=== PATIENT | female | born 1940 | race Caucasian/White ===

== ENCOUNTER → 2016-10-25 | Outpatient (CLI) | payer MEDICARE, BC ==
--- NOTE | 2016-10-26 01:07 | BD ---
EXAMINATION TYPE: MG DEXA axial skeleton. DATE OF EXAM: 10/25/2016 3:06 PM COMPARISON: NONE CLINICAL HISTORY: 76-year-old female postmenopausal screening Height: 66 IN Weight: 154 LBS FRAX RISK QUESTIONS: Alcohol (3 or more units per day): NO Family History (Parent hip fracture): YES MOTHER Glucocorticoids (More than 3mos): NO (Ex: prednisone, prednisolone, methylprednisolone, dexamethasone, and hydrocortisone). History of Fracture in Adulthood: NO Secondary Osteoporosis: 1. Type 1 Diabetes: NO 2. Hyperthyroidism: NO 3. Menopause before 45: YES AGE 40 4. Malnutrition: NO 5. Chronic liver disease: NO Rheumatoid Arthritis: NO Current Tobacco Use: NO RISK FACTORS HISTORY OF: Surgery to Spine): L SPINE When: 1995 Family History of Osteoporosis: YES MOTHER/AUNT(M) Active: YES Diet low in dairy products/other sources of calcium: YES Postmenopausal woman: AGE 40 Take estrogen and/or progesterone medications: NOT NOW How long: AGE 41 - 46 Lost more than 2 inches in height since high school: YES 3 " MEDICATIONS: Thyroid Medications: YES Which medication: Levothyroxine How Lon+ YRS Additional Medications: CALCIUM, VIT D, LEVOTHYROXINE, ABILIFY, PAXIL, XANAX, PROPRANOLOL, BABY ASPIR IN, CENTRUM SILVER EXAM MEASUREMENTS: Bone mineral densitometry was performed using the [employer] System. PT HAD L-SPINE SURGERY IN 1995 Bone mineral density about the R hip (g/cm2): 0.842 Bone mineral density about the L hip (g/cm2): 0.794 T Score values are as follows: -----R Neck: -1.4 -----L Neck: -1.8 -----R Total: -1.1 -----L Total: -1.4 Bone mineral density BASELINE IMPRESSION: Osteopenia as indicated by T score values in both hips. There is slightly increased risk of fracture and the patient may be considered for treatment. Re-Screen 2-5 years. NOTE: T-SCORE=SD OF THE YOUNG ADULT MEAN.
--- NOTE | 2016-10-28 07:45 | MM ---
Reason for exam: screening (asymptomatic). Last mammogram was performed 1 year ago. History: Patient is postmenopausal, has history of high-risk lesion on a previous biopsy at age 59, history of other cancer, and had first child at age 32. High risk excisional biopsy of the left breast. Benign excisional biopsy of the right breast. Physical Findings: A clinical breast exam by your physician is recommended on an annual basis and results should be correlated with mammographic findings. MG 3D Screening Mammo W/Cad Bilateral CC and MLO view(s) were taken. Prior study comparison: October 15, 2015, bilateral MG 3d diag mammo w/cad KASIE. September 13, 2014, mammogram. The breast tissue is extremely dense which could obscure a lesion on mammography. Subtle distortion right medial inferior MLO view, may be present previously. ASSESSMENT: Probably benign, BI-RAD 3 RECOMMENDATION: Follow-up diagnostic mammogram of the right breast in 6 months.
== END | disposition home or self-care (01) ==
LOC: RADMAMWWP 15:03
PROVIDERS: ATTEND Internal Medicine
DX: Z12.31 Encounter for screening mammogram for malignant neoplasm of breast (principal); M85.80 Other specified disorders of bone density and structure, unspecified site; Z78.0 Asymptomatic menopausal state
CPT/HCPCS: 77080; 77063; G0202

== ENCOUNTER → 2016-10-27 | Outpatient (CLI) | payer MEDICARE, BC ==
[2016-10-27 08:16] LABS: CH 30.3; CHCM 32.4; HCT 40.8 % (34.0-46.0); HDW 2.24; MCHC 31.9 g/dL (31.0-37.0); MCV 94.2 fL (80.0-100.0); Mean Platelet Volume 7.9; RBC 4.33 m/uL (3.80-5.40); RDW 14.2 % (11.5-15.5); WBC 5.3 k/uL (3.8-10.6)
[2016-10-27 08:23] LABS: ALT 36 U/L (9-52); AST 41 U/L (14-36); Alkaline Phosphatase 75 U/L (38-126); Anion Gap 9 mmol/L; Blood Urea Nitrogen 11 mg/dL (7-17); Calcium 8.8 mg/dL (8.4-10.2); Carbon Dioxide 28 mmol/L (22-30); Chloride 101 mmol/L (98-107); Cholesterol 135 mg/dL (<200); Glucose 81 mg/dL (74-99); HDL Cholesterol 51 mg/dL (40-60); Non-African American GFR(MDRD) >60 (>60 ml/min/1.73 sqM); Sodium 138 mmol/L (137-145); Total Bilirubin 0.7 mg/dL (0.2-1.3); Total Protein 6.8 g/dL (6.3-8.2); Triglycerides 54 mg/dL (<150)
[2016-10-27 12:35] LABS: Hemoglobin A1C 5.4 % (4.2-6.1)
== END | disposition home or self-care (01) ==
LOC: LABWHC1 06:38
PROVIDERS: ATTEND Internal Medicine
DX: E03.9 Hypothyroidism, unspecified (principal); E78.5 Hyperlipidemia, unspecified; F06.4 Anxiety disorder due to known physiological condition; R25.1 Tremor, unspecified; Z13.1 Encounter for screening for diabetes mellitus
CPT/HCPCS: 36415; 80053; 80061; 83036; 84443; 85027

== ENCOUNTER → 2017-04-29 | Outpatient (CLI) | payer MEDICARE, BC ==
--- NOTE | 2017-05-02 07:55 | MM ---
Reason for exam: follow-up at short interval from prior study. Last mammogram was performed 6 months ago. History: Patient is postmenopausal, has history of high-risk lesion on a previous biopsy at age 59, history of other cancer, and had first child at age 32. High risk excisional biopsy of the left breast. Benign excisional biopsy of the right breast. Physical Findings: Nurse did not find any significant physical abnormalities on exam. MG 3D Diag Mammo W/Cad RT CC and MLO view(s) were taken of the right breast. Prior study comparison: October 25, 2016, bilateral MG 3d screening mammo w/cad. October 15, 2015, bilateral MG 3d diag mammo w/cad KASIE. The breast tissue is extremely dense which could obscure a lesion on mammography. Finding #1: Stable architectural distortion in the right breast consistent with previous surgery. Finding #2: There are typically benign calcifications in the right breast. These results were verbally communicated with the patient and result sheet given to the patient on 04/29/17. ASSESSMENT: Benign, BI-RAD 2 RECOMMENDATION: Follow-up diagnostic mammogram of both breasts in 6 months.
== END | disposition home or self-care (01) ==
LOC: RADMAMWWP 14:28
PROVIDERS: ATTEND Internal Medicine
DX: R92.8 Other abnormal and inconclusive findings on diagnostic imaging of breast (principal)
CPT/HCPCS: G0206; G0279

== ENCOUNTER 2017-10-07 12:07 | Emergency (ER) | payer MEDICARE, BC ==
[2017-10-07] MEDS ORDERED: RX INFO: IV CONTRAST WAS GIVEN 1 EACH MISC MISCELLANE PRN (12:15)
[2017-10-07] MEDS ORDERED: SODIUM CHLORIDE 0.9% 1,000 ML IV STA (12:15)
[2017-10-07 12:38] LABS: Basophils % (A) 0 %; Eosinophils # (A) 0.2 k/uL (0-0.7); Eosinophils % (A) 2 %; HGB 14.7 gm/dL (11.4-16.0); Lymphocytes # (A) 1.7 k/uL (1.0-4.8); Lymphocytes % (A) 17 %; MCH 29.4 pg (25.0-35.0); MCHC 32.6 g/dL (31.0-37.0); MCV 90.1 fL (80.0-100.0); Mean Platelet Volume 7.9; Monocytes # (A) 0.5 k/uL (0-1.0); Monocytes % (A) 4 %; Neutrophils # (A) 7.5 k/uL (1.3-7.7); Neutrophils % (A) 75 %; Platelet Count 275 k/uL (150-450); RBC 4.99 m/uL (3.80-5.40); RDW 14.3 % (11.5-15.5); WBC 10.1 k/uL (3.8-10.6)
--- NOTE | 2017-10-07 12:48 | ED ---
General Adult HPI - General Chief complaint: Neuro Symptoms/Deficit Stated complaint: Memory Loss Time Seen by Provider: 10/07/17 12:14 Source: family, RN notes reviewed, old records reviewed Mode of arrival: wheelchair Limitations: altered mental status - History of Present Illness Initial comments: This is a 77-year-old female the ER for evaluation per patient does say for evaluation regarding episode of memory loss. Patient has history of colon amnesia unrelated known cause. Patient has no high blood pressure cholesterol no diabetes of her breath. Patient does admit to being mildly anxious currently. Per family patient was left babysitting, when they returned home patient was having difficulty with memory unsure of where she was how she got there etc. Patient currently having difficulty with current memory situation. Unable to remember any events of today. In that fact patient's poor strain, denies headache denies any other complaints. Patient does have resting right upper extremity tremor - Related Data Home Medications Medication Instructions Recorded Confirmed ARIPiprazole [Abilify] 2 mg PO DAILY 10/07/17 10/07/17 ARIPiprazole [Abilify] 15 mg PO DAILY 10/07/17 10/07/17 Aspirin EC [Ecotrin Low Dose] 81 mg PO DAILY 10/07/17 10/07/17 Cholecalciferol [Vitamin D3] 1,000 unit PO DAILY 10/07/17 10/07/17 Levothyroxine Sodium [Synthroid] 25 mcg PO DAILY 10/07/17 10/07/17 PARoxetine HCL [Paxil Cr] 25 mg PO HS 10/07/17 10/07/17 Propranolol HCl [Propranolol HCl 60 mg PO DAILY 10/07/17 10/07/17 ER] Allergies Allergy/AdvReac Type Severity Reaction Status Date / Time No Known Allergies Allergy Verified 10/07/17 12:45 Review of Systems ROS Statement: Those systems with pertinent positive or pertinent negative responses have been documented in the HPI. ROS Other: All systems not noted in ROS Statement are negative. Past Medical History Additional Past Medical History / Comment(s): global amnesia in the past History of Any Multi-Drug Resistant Organisms: None Reported Past Surgical History: Appendectomy, Hysterectomy Additional Past Surgical History / Comment(s): cysts removed from breasts Past Psychological History: Depression Smoking Status: Never smoker Past Alcohol Use History: None Reported Past Drug Use History: None Reported General Exam - General Exam Comments Initial Comments: NIH of 0, no focal neurological deficit, patient does have retrograde memory loss Limitations: altered mental status General appearance: alert, in no apparent distress Head exam: Present: atraumatic, normocephalic, normal inspection Eye exam: Present: normal appearance, PERRL, EOMI. Absent: scleral icterus, conjunctival injection, periorbital swelling ENT exam: Present: normal exam, mucous membranes moist Neck exam: Present: normal inspection. Absent: tenderness, meningismus, lymphadenopathy Respiratory exam: Present: normal lung sounds bilaterally. Absent: respiratory distress, wheezes, rales, rhonchi, stridor Cardiovascular Exam: Present: regular rate, normal rhythm, normal heart sounds. Absent: systolic murmur, diastolic murmur, rubs, gallop, clicks GI/Abdominal exam: Present: soft, normal bowel sounds. Absent: distended, tenderness, guarding, rebound, rigid Extremities exam: Present: normal inspection, full ROM, normal capillary refill. Absent: tenderness, pedal edema, joint swelling, calf tenderness Back exam: Present: normal inspection Neurological exam: Present: alert, oriented X3, CN II-XII intact Psychiatric exam: Present: normal affect, normal mood Skin exam: Present: warm, dry, intact, normal color. Absent: rash Course Vital Signs 10/07/17 10/07/17 12:18 13:38 Temperature 98.6 F Pulse Rate 73 71 Respiratory 18 20 Rate Blood Pressure 184/89 180/87 O2 Sat by Pulse 99 99 Oximetry - Reevaluation(s) Reevaluation #1: 10/07/17 12:47 Code stroke page, Reevaluation #2: 10/07/17 14:09 Patient improving, still having mild memory lapse from earlier today EKG Findings - EKG Comments: EKG Findings:: EKG shows normal sinus rhythm rate of 70, IN 166, QRS 86, QTc 403 Medical Decision Making - Medical Decision Making 77 female the ER for evaluation, fall retrograde memory loss, transient global amnesia, CT CT negative labwork normal. Patient will be discharged home - Lab Data Result diagrams: 10/07/17 12:25 10/07/17 12:25 Lab Results 10/07/17 10/07/17 10/07/17 Range/Units 12:25 12:25 12:25 WBC 10.1 (3.8-10.6) k/uL RBC 4.99 (3.80-5.40) m/uL Hgb 14.7 (11.4-16.0) gm/dL Hct 45.0 (34.0-46.0) % MCV 90.1 (80.0-100.0) fL MCH 29.4 (25.0-35.0) pg MCHC 32.6 (31.0-37.0) g/dL RDW 14.3 (11.5-15.5) % Plt Count 275 (150-450) k/uL Neutrophils % 75 % Lymphocytes % 17 % Monocytes % 4 % Eosinophils % 2 % Basophils % 0 % Neutrophils # 7.5 (1.3-7.7) k/uL Lymphocytes # 1.7 (1.0-4.8) k/uL Monocytes # 0.5 (0-1.0) k/uL Eosinophils # 0.2 (0-0.7) k/uL Basophils # 0.0 (0-0.2) k/uL PT (9.0-12.0) sec INR (<1.2) APTT (22.0-30.0) sec Sodium 143 (137-145) mmol/L Potassium 4.2 (3.5-5.1) mmol/L Chloride 103 (98-107) mmol/L Carbon Dioxide 27 (22-30) mmol/L Anion Gap 13 mmol/L BUN 20 H (7-17) mg/dL Creatinine 0.73 (0.52-1.04) mg/dL Est GFR (CKD-EPI)AfAm >90 (>60 ml/min/1.73 sqM) Est GFR (CKD-EPI)NonAf 81 (>60 ml/min/1.73 sqM) Glucose 101 H (74-99) mg/dL Calcium 9.4 (8.4-10.2) mg/dL Total Bilirubin 0.4 (0.2-1.3) mg/dL AST 35 (14-36) U/L ALT 31 (9-52) U/L Alkaline Phosphatase 106 (38-126) U/L Total Creatine Kinase 269 H (30-135) U/L CK-MB (CK-2) 3.7 H* (0.0-2.4) ng/mL CK-MB (CK-2) Rel Index 1.4 Troponin I 0.038 H* (0.000-0.034) ng/mL Total Protein 7.1 (6.3-8.2) g/dL Albumin 4.2 (3.5-5.0) g/dL 10/07/17 Range/Units 12:25 WBC (3.8-10.6) k/uL RBC (3.80-5.40) m/uL Hgb (11.4-16.0) gm/dL Hct (34.0-46.0) % MCV (80.0-100.0) fL MCH (25.0-35.0) pg MCHC (31.0-37.0) g/dL RDW (11.5-15.5) % Plt Count (150-450) k/uL Neutrophils % % Lymphocytes % % Monocytes % % Eosinophils % % Basophils % % Neutrophils # (1.3-7.7) k/uL Lymphocytes # (1.0-4.8) k/uL Monocytes # (0-1.0) k/uL Eosinophils # (0-0.7) k/uL Basophils # (0-0.2) k/uL PT 10.4 (9.0-12.0) sec INR 1.1 (<1.2) APTT 23.9 (22.0-30.0) sec Sodium (137-145) mmol/L Potassium (3.5-5.1) mmol/L Chloride (98-107) mmol/L Carbon Dioxide (22-30) mmol/L Anion Gap mmol/L BUN (7-17) mg/dL Creatinine (0.52-1.04) mg/dL Est GFR (CKD-EPI)AfAm (>60 ml/min/1.73 sqM) Est GFR (CKD-EPI)NonAf (>60 ml/min/1.73 sqM) Glucose (74-99) mg/dL Calcium (8.4-10.2) mg/dL Total Bilirubin (0.2-1.3) mg/dL AST (14-36) U/L ALT (9-52) U/L Alkaline Phosphatase (38-126) U/L Total Creatine Kinase (30-135) U/L CK-MB (CK-2) (0.0-2.4) ng/mL CK-MB (CK-2) Rel Index Troponin I (0.000-0.034) ng/mL Total Protein (6.3-8.2) g/dL Albumin (3.5-5.0) g/dL - Radiology Data Radiology results: report reviewed (CT brain CTA head and neck negative), image reviewed Disposition Clinical Impression: Transient global amnesia Disposition: HOME SELF-CARE Condition: Good Instructions: Transient Global Amnesia (ED) Is patient prescribed a controlled substance at d/c from ED?: No Referrals: Sreedhar Encinas MD [Primary Care Provider] - 1-2 days
[2017-10-07 12:50] LABS: ALT 31 U/L (9-52); AST 35 U/L (14-36); Albumin 4.2 g/dL (3.5-5.0); Alkaline Phosphatase 106 U/L (38-126); Anion Gap 13 mmol/L; Blood Urea Nitrogen 20 mg/dL (7-17); Calcium 9.4 mg/dL (8.4-10.2); Carbon Dioxide 27 mmol/L (22-30); Chloride 103 mmol/L (98-107); Glucose 101 mg/dL (74-99); Potassium 4.2 mmol/L (3.5-5.1); Sodium 143 mmol/L (137-145); Total Bilirubin 0.4 mg/dL (0.2-1.3); Total Protein 7.1 g/dL (6.3-8.2)
--- NOTE | 2017-10-07 12:55 | CT ---
EXAMINATION TYPE: CT brain wo con for TPA DATE OF EXAM: 10/07/2017 COMPARISON: NONE HISTORY: confusion CT DLP: 1029.[address] of the brain was performed. The ventricles, basal cisterns and sulci overlying the cerebral convexities demonstrate mild enlargem ent. There is no evidence for intracranial hemorrhage or sulcal effacement. There is decreased attenuation about the periventricular white matter and deep white matter of both c erebral hemispheres, compatible with chronic small vessel ischemia. Differential diagnosis does inclu de demyelination. No mass effects are seen.No midline shift. Osseous calvarium is intact. If symptoms persist consider MRI. IMPRESSION: 1. Age related atrophic and chronic small vessel ischemic change without acute intracranial process s een at this time.
[2017-10-07 13:17] LABS: INR 1.1 (<1.2); Partial Thromboplastin Time 23.9 sec (22.0-30.0); Prothrombin Time 10.4 sec (9.0-12.0)
[2017-10-07 13:23] LABS: Creatine Kinase MB 3.7 ng/mL (0.0-2.4); Troponin I 0.038 ng/mL (0.000-0.034)
--- NOTE | 2017-10-07 13:51 | CT ---
EXAMINATION TYPE: CT angio head neck DATE OF EXAM: 10/07/2017 COMPARISON: NONE HISTORY: ams, confusion, weakness CT DLP: 319.3 mGycm CONTRAST: Performed with IV Contrast, patient injected with 65 mL of Isovue 370. Combination Contrast CTA cervical carotids and [place] CTA cervical carotids with 3-D recons truction Contrast CTA of the cervical carotids was performed 3-D reconstruction imaging obtained at a separate workstation. Right carotid system: Mild plaque is seen of the right common carotid artery. There is mild plaque a lso noted at the carotid bulb and proximal ICA. No significant diameter reduction. ECA is patent. Right vertebral artery appears unremarkable. Left carotid system: Mild plaque is seen of the left common carotid artery. There is mild plaque als o noted at the carotid bulb and proximal ICA. No significant diameter reduction. ECA is patent. Lef t vertebral artery appears unremarkable. IMPRESSION: 1. No significant diameter reduction to account for the patient's symptoms. CTA [place] with 3-D reconstruction Contrast CTA of the [place] was performed 3-D reconstruction imaging obtained at a separate workstation. Vertebrobasilar system as well as intracranial portions of the internal carotid arteries and their ma [place]orah tributaries are patent. I do not see evidence for sizable aneurysm or vascular malformation. Pl ease note MRI provides greater sensitivity and specificity. Visualized brain appears grossly unremar kable. IMPRESSION: 1. No significant abnormality.
[2017-10-07 14:38] VITALS: BP 159/64; PULSE 89; RESP 18; TEMP 98
== END 2017-10-07 14:38 | disposition home or self-care (01) ==
LOC: EC 12:07
DX: G45.4 Transient global amnesia (principal); R41.82 Altered mental status, unspecified; F32.9 Major depressive disorder, single episode, unspecified; Z79.82 Long term (current) use of aspirin; Z79.899 Other long term (current) drug therapy
CPT/HCPCS: 99285 ×2; 96360 ×2; 96361 ×2; 36415; 93005; 80053; 82550; 82553; 84484; 85025; 85610; 85730; 70496; 70450; 70498; Q9967

== ENCOUNTER → 2017-10-17 | Outpatient (CLI) | payer MEDICARE, BC ==
--- NOTE | 2017-10-18 07:11 | MM ---
Reason for exam: additional evaluation requested from prior study. Last mammogram was performed 6 months ago. History: Patient is postmenopausal, has history of high-risk lesion on a previous biopsy at age 59, history of other cancer, and had first child at age 32. High risk excisional biopsy of the left breast. Benign excisional biopsy of the right breast. Physical Findings: Nurse did not find any significant physical abnormalities on exam. MG 3D Diag Mammo W/Cad KASIE Bilateral CC and MLO view(s) were taken. Prior study comparison: April 29, 2017, right breast MG 3d diag mammo w/cad RT. October 25, 2016, bilateral MG 3d screening mammo w/cad. The breast tissue is extremely dense which could obscure a lesion on mammography. Finding #1: There is stable architectural distortion in the outer quadrant of the right breast. Finding #2: There are typically benign vascular, round calcifications in both breasts. There is no discrete abnormality. These results were verbally communicated with the patient and result sheet given to the patient on 10/17/17. ASSESSMENT: Benign, BI-RAD 2 RECOMMENDATION: Routine screening mammogram of both breasts in 1 year.
== END | disposition home or self-care (01) ==
LOC: RADMAMWWP 14:53
PROVIDERS: ATTEND Internal Medicine
DX: R92.8 Other abnormal and inconclusive findings on diagnostic imaging of breast (principal)
CPT/HCPCS: 77066; G0279; 77062

== ENCOUNTER → 2017-10-19 | Outpatient (CLI) | payer MEDICARE, BC ==
--- NOTE | 2017-10-19 18:22 | EEG ---
ELECTROENCEPHALOGRAM REPORT DATE OF SERVICE: 10/19/2017. REASON FOR TESTING: Altered mental status. DESCRIPTION OF THE PROCEDURE: This EEG was performed using a 21 channel digital electroencephalograph, following international 10-20 system. DESCRIPTION OF THE RECORDING: From the beginning of the tracing, with patient's eyes closed, the background rhythm was mostly consisting of 9-10 Hz alpha frequency in the posterior occipital leads. No obvious asymmetry is seen. Photic stimulation was performed with a minimal driving response seen. No pathological waves were elicited. Hyperventilation was not performed. The patient remains awake throughout the tracing. No epileptiform discharges were seen. Her EKG lead showed a regular rate and rhythm. INTERPRETATION: This awake EEG can be considered within normal limits. There was no asymmetry seen. No epileptiform discharges were noticed. The absence of epileptiform discharges does not rule out the diagnosis of epilepsy, therefore clinical correlation is recommended. RECOMMENDATION: Thank you, Dr. Encinas for allowing me to participate in the care of your patient. If you have any questions, please feel free to contact me. MMELVIA / IJN: [id number] /
== END ==
LOC: NEUROMAIN 12:38
PROVIDERS: ATTEND Internal Medicine
DX: G45.4 Transient global amnesia (principal)
CPT/HCPCS: 95819

== ENCOUNTER 2017-11-04 15:54 | Emergency (ER) | payer OTHER, MEDICARE, BC ==
[2017-11-04 16:11] VITALS: PULSE 78; RESP 18; TEMP 98.1
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
[2017-11-04] MEDS ORDERED: TOPICAL SKIN ADHESIVE 1 EACH AMP TOPICAL ONE (17:22)
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
[2017-11-04 18:00] VITALS: BP 168/78
== END 2017-11-04 18:00 | disposition home or self-care (01) ==
LOC: EC 15:54
DX: S01.112A Laceration without foreign body of left eyelid and periocular area, initial encounter (principal); S09.90XA Unspecified injury of head, initial encounter; G31.9 Degenerative disease of nervous system, unspecified; R40.2412 Glasgow coma scale score 13-15, at arrival to emergency department; I10 Essential (primary) hypertension; E07.9 Disorder of thyroid, unspecified; F32.9 Major depressive disorder, single episode, unspecified; Z79.82 Long term (current) use of aspirin; Z79.899 Other long term (current) drug therapy; V89.2XXA Person injured in unspecified motor-vehicle accident, traffic, initial encounter; Y92.410 Unspecified street and highway as the place of occurrence of the external cause
CPT/HCPCS: 12011; 70450; 70486; 72125; 99284

== ENCOUNTER → 2017-12-29 | Outpatient (CLI) | payer MEDICARE, BC ==
--- NOTE | 2017-12-29 17:39 | XR ---
EXAMINATION TYPE: XR wrist complete LT DATE OF EXAM: 12/29/2017 COMPARISON: NONE HISTORY: Fall. Wrist pain. TECHNIQUE: 4 views. FINDINGS: I see no fracture nor dislocation. There is calcification of the triangular cartilage. Ther e are no erosions. IMPRESSION: No fracture. Chondrocalcinosis.
--- NOTE | 2017-12-29 17:40 | XR ---
EXAMINATION TYPE: XR forearm LT DATE OF EXAM: 12/29/2017 COMPARISON: NONE HISTORY: Pain TECHNIQUE: 2 views FINDINGS: I see no fracture nor dislocation. Radius and ulna appear intact. IMPRESSION: Negative left forearm exam.
--- NOTE | 2017-12-29 17:44 | XR ---
EXAMINATION TYPE: XR humerus LT DATE OF EXAM: 12/29/2017 COMPARISON: NONE HISTORY: Arm pain TECHNIQUE: 2 views FINDINGS: There is no sign of fracture nor dislocation. Shoulder joint and elbow joint appear intact. IMPRESSION: Negative left humerus exam
== END | disposition home or self-care (01) ==
LOC: RADXRMAIN 17:01
PROVIDERS: ATTEND Nurse Practitioner Adult Health
DX: M11.232 Other chondrocalcinosis, left wrist (principal); M79.602 Pain in left arm

== ENCOUNTER → 2018-06-30 | Outpatient (CLI) | payer OTHER ==
--- NOTE | 2018-06-30 16:50 | XR ---
EXAMINATION TYPE: XR tibia fibula LT DATE OF EXAM: 06/30/2018 CLINICAL HISTORY: Fracture TECHNIQUE: Two views of the left leg are obtained. COMPARISON: None at this location FINDINGS: There is a healing fracture with callus formation at the distal diaphyseal left fibula. Joint spaces appear preserved. Joint prosthesis is noted at the knee. Soft tissues are unremarkable. IMPRESSION: 1. Healing fracture distal diaphyseal fibula.
== END | disposition home or self-care (01) ==
LOC: RADXRMAIN 14:53
PROVIDERS: ATTEND Internal Medicine
DX: S82.402D Unspecified fracture of shaft of left fibula, subsequent encounter for closed fracture with routine healing (principal)

== ENCOUNTER → 2018-07-17 | Outpatient (CLI) | payer OTHER ==
--- NOTE | 2018-07-17 18:51 | US ---
EXAMINATION TYPE: US venous doppler duplex LE LT DATE OF EXAM: 07/17/2018 6:21 PM COMPARISON: NONE CLINICAL HISTORY: M25.572 lle pain and swelling. Left leg pain. SIDE PERFORMED: Left TECHNIQUE: The lower extremity deep venous system is examined utilizing real time linear array sonog reji with graded compression, doppler sonography and color-flow sonography. VESSELS IMAGED: External Iliac Vein (EIV) Common Femoral Vein Deep Femoral Vein Greater Saphenous Vein * Femoral Vein Popliteal Vein Small Saphenous Vein * Proximal Calf Veins (* superficial vessels) Left Leg: Negative for DVT Grayscale, color doppler, spectral doppler imaging performed of the deep veins of the left lower extr emity. There is normal flow, compressibility, vascular waveforms. IMPRESSION: No ultrasound evidence for acute DVT in the left lower extremity.
== END | disposition home or self-care (01) ==
LOC: RADUSMAIN 17:58
PROVIDERS: ATTEND Orthopaedic Surgery
DX: M25.572 Pain in left ankle and joints of left foot (principal); R60.9 Edema, unspecified

== ENCOUNTER → 2018-08-01 | Outpatient (CLI) | payer MEDICARE, OTHER ==
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
== END | disposition home or self-care (01) ==
LOC: RADFLMAIN 11:07
PROVIDERS: ATTEND Otolaryngology
DX: J39.2 Other diseases of pharynx (principal)
CPT/HCPCS: 74230

== ENCOUNTER → 2018-09-25 | Outpatient (CLI) | payer MEDICARE ==
--- NOTE | 2018-09-25 16:22 | US ---
EXAMINATION TYPE: US venous doppler duplex LE LT DATE OF EXAM: 09/25/2018 4:11 PM COMPARISON: Left lower extremity venous ultrasound July 17, 2018 CLINICAL HISTORY: M25.572/R60.9/S82.62XD/Evaluate DVT. SIDE PERFORMED: Left TECHNIQUE: The lower extremity deep venous system is examined utilizing real time linear array sonog reji with graded compression, doppler sonography and color-flow sonography. VESSELS IMAGED: External Iliac Vein (EIV) Common Femoral Vein Deep Femoral Vein Greater Saphenous Vein * Femoral Vein Popliteal Vein Small Saphenous Vein * Proximal Calf Veins (* superficial vessels) Left Leg: Appears negative for DVT. Preliminary given to Xena at 4:15. Grayscale, color doppler, spectral doppler imaging performed of the deep veins of the left lower extr emity. There is normal flow, compressibility, vascular waveforms. IMPRESSION: No ultrasound evidence for acute DVT in the left lower extremity. No significant change from prior.
== END | disposition home or self-care (01) ==
LOC: RADUSWWP 15:41
PROVIDERS: ATTEND Orthopaedic Surgery
DX: M79.662 Pain in left lower leg (principal); R60.9 Edema, unspecified; I80.3 Phlebitis and thrombophlebitis of lower extremities, unspecified; S82.62XD Displaced fracture of lateral malleolus of left fibula, subsequent encounter for closed fracture with routine healing

== ENCOUNTER → 2018-12-11 | Outpatient (CLI) | payer MEDICARE, BC ==
--- NOTE | 2018-12-13 08:07 | MM ---
Reason for exam: screening (asymptomatic). Last mammogram was performed 1 year and 2 months ago. History: Patient is postmenopausal, has history of high-risk lesion on a previous biopsy at age 59, history of other cancer, and had first child at age 32. High risk excisional biopsy of the left breast. Benign excisional biopsy of the right breast. Physical Findings: A clinical breast exam by your physician is recommended on an annual basis and results should be correlated with mammographic findings. MG 3D Screening Mammo W/Cad Bilateral CC and MLO view(s) were taken. Prior study comparison: October 17, 2017, bilateral MG 3d diag mammo w/cad KASIE. April 29, 2017, right breast MG 3d diag mammo w/cad RT. The breast tissue is heterogeneously dense. This may lower the sensitivity of mammography. No significant changes when compared with prior studies. ASSESSMENT: Negative, BI-RAD 1 RECOMMENDATION: Routine screening mammogram of both breasts in 1 year. Patient should continue monthly self breast exams. A negative report should not preclude additional follow up of suspicious palpable abnormalities.
== END | disposition home or self-care (01) ==
LOC: RADMAMWWP 14:32
PROVIDERS: ATTEND Internal Medicine
DX: Z12.31 Encounter for screening mammogram for malignant neoplasm of breast (principal)
CPT/HCPCS: 77063; 77067

== ENCOUNTER → 2019-01-01 | Outpatient (CLI) | payer MEDICARE, BC ==
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
== END | disposition home or self-care (01) ==
LOC: RADBDWWP 08:59
PROVIDERS: ATTEND Internal Medicine
DX: M85.88 Other specified disorders of bone density and structure, other site (principal); Z78.0 Asymptomatic menopausal state
CPT/HCPCS: 77080

== ENCOUNTER → 2020-01-28 | Outpatient (CLI) | payer MEDICARE, BC ==
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
== END | disposition home or self-care (01) ==
LOC: RADMAMWWP 14:17
PROVIDERS: ATTEND Internal Medicine
DX: Z12.31 Encounter for screening mammogram for malignant neoplasm of breast (principal)
CPT/HCPCS: 77063; 77067

== ENCOUNTER → 2020-02-21 | Outpatient (CLI) | payer MEDICARE, BC ==
--- NOTE | 2020-02-21 15:32 | CT ---
EXAMINATION TYPE: CT brain wo con DATE OF EXAM: 02/21/2020 HISTORY: Confusion x 3 weeks. History of TBI. CT DLP: 1150.5 mGycm. Automated Exposure Control for Dose Reduction was Utilized. TECHNIQUE: CT scan of the head is performed without contrast. COMPARISON: CT brain November 04, 2017. FINDINGS: There is no acute intracranial hemorrhage or midline shift identified. There is diffuse v entricular and sulcal prominence consistent with diffuse age-related cerebral atrophy. There is low- attenuation in the periventricular white matter consistent with chronic small vessel ischemic change. The globes are intact and the visualized sinuses are clear. IMPRESSION: No acute intracranial hemorrhage or midline shift. There is ovhu-ka-dileetom diffuse ag e-related cerebral atrophy and moderate to advanced chronic small vessel ischemic change redemonstrat ed. No significant change from prior CT.
== END | disposition home or self-care (01) ==
LOC: RADCTMAIN 09:46
PROVIDERS: ATTEND Internal Medicine
DX: I67.82 Cerebral ischemia (principal); G31.1 Senile degeneration of brain, not elsewhere classified; R41.0 Disorientation, unspecified; Z20.828 Contact with and (suspected) exposure to other viral communicable diseases
CPT/HCPCS: 70450; U0003; C9803

== ENCOUNTER → 2020-04-15 | Outpatient (CLI) | payer MEDICARE, BC ==
[~2020-04-15] MED LIST: DOBUTamine DRIP for NUC MED 500 MG in DEXTROSE/WATER 1 250ML.BAG IV ONE
--- NOTE | 2020-04-15 12:15 | ECHOS ---
STRESS ECHOCARDIOGRAM BASELINE HEART RATE: 70 BASELINE BLOOD PRESSURE: 133/74 MAXIMUM HEART RATE: 134 MAXIMUM BLOOD PRESSURE: 152/55 85% MPHR: 121 100% MPHR: 142 MAXIMUM STAGE REACHED: 3 TOTAL EXERCISE TIME: 7:54 CLINICAL INFORMATION: Baseline EKG revealed normal sinus rhythm without significant ST changes. With dobutamine administration as per protocol, the heart rate went up to 134 beats per minute which is well above 85% of predicted maximal. She did not have any significant symptoms. EKG did not reveal any ST-segment changes to indicate ischemia. Upsloping nonspecific ST-segment changes with rare PVCs were noted. By EKG criteria, this is unremarkable dobutamine stress test with a heart rate of more than 85% of the predicted maximal. This is unremarkable dobutamine stress test by EKG criteria. Baseline echo images revealed normal wall motion wall thickening of all segments. With dobutamine administration, there was progressive increase in contractility of all segments suggesting that there is no evidence of stress-induced ischemia on this study. FINAL IMPRESSION: 1. By EKG criteria, this is an unremarkable dobutamine stress test without any evidence of ischemia or angina. 2. Normal dobutamine stress echocardiogram. There is no evidence to suggest stress induced ischemia on this study. MMODL / IJN: [id number] /
== END | disposition home or self-care (01) ==
LOC: RADNMMAIN 09:42
PROVIDERS: ATTEND Internal Medicine
DX: R07.9 Chest pain, unspecified (principal)
CPT/HCPCS: 93351; J1250

== ENCOUNTER → 2020-04-21 | Outpatient (CLI) | payer OTHER, MEDICARE, BC ==
--- NOTE | 2020-04-21 13:51 | MR ---
MRI CERVICAL SPINE: CLINICAL HISTORY: Hyperreflexia, abnormal gait, and myelopathy all per order. Neck pain for 2 years. TECHNIQUE: Multiplanar, multisequence imaging of the cervical spine is performed without IV contrast. COMPARISON: CT cervical spine September 04, 2017. FINDINGS: Sagittal images of the cervical spine show the craniocervical junction to appear within nor mal limits. Slight grade 1 anterolisthesis C4 on C5 along with C7 on T1 is redemonstrated. Exaggerate d cervical curvature redemonstrated. Persistent moderate disc space narrowing C5-C6 and C6-C7 levels. Mild to moderate anterior spurring at these levels. Vertebral body heights maintained. The bone mar row signal intensity is within normal limits. Axial images show the C2-C3 level to appear within normal limits. Axial images at C3-C4 level show uncovertebral facet degenerative changes bilaterally causing mild-to -moderate right greater than left bilateral neural foraminal narrowing. Axial images at C4-C5 level shows spondylolisthesis without vertebral facet degenerative changes bila terally, patent bilateral neural foramina. Axial images at C5-C6 level broad-based right paracentral disc protrusion effacing anterior thecal sa c. Up to the ventral surface of spinal cord, patent bilateral neural foramina. Axial images at C6-C7 level broad-based central disc protrusion effacing the anterior thecal sac up t o the ventral surface of spinal cord axial image 15, patent bilateral neural foramina. Axial images at C7-T1 level show spondylolisthesis, spinal canal is preserved. The bilateral neural f oramina. IMPRESSION: Exaggerated cervical curvature with multilevel spondylolisthesis and degenerative changes as detailed above
== END | disposition home or self-care (01) ==
LOC: RADMRIMAIN 12:43
PROVIDERS: ATTEND Psychiatry & Neurology Neurology
DX: M43.12 Spondylolisthesis, cervical region (principal); M43.13 Spondylolisthesis, cervicothoracic region; M47.12 Other spondylosis with myelopathy, cervical region; M43.8X2 Other specified deforming dorsopathies, cervical region
CPT/HCPCS: 72141

== ENCOUNTER 2020-06-07 12:48 | Emergency (ER) | payer MEDICARE, BC, OTHER ==
[2020-06-07 12:55] VITALS: TEMP 98.7
[2020-06-07] MEDS ORDERED: hydrALAZINE HCL 20 MG/ML 1 ML VIAL IVP STA (13:47)
[2020-06-07 14:01] LABS: Basophils # (A) 0.1 k/uL (0-0.2); Basophils % (A) 1 %; Eosinophils # (A) 0.3 k/uL (0-0.7); Eosinophils % (A) 4 %; HCT 42.7 % (34.0-46.0); HGB 14.3 gm/dL (11.4-16.0); Lymphocytes # (A) 1.4 k/uL (1.0-4.8); Lymphocytes % (A) 23 %; MCHC 33.5 g/dL (31.0-37.0); MCV 92.4 fL (80.0-100.0); Mean Platelet Volume 7.2; Monocytes # (A) 0.5 k/uL (0-1.0); Monocytes % (A) 8 %; Neutrophils # (A) 3.8 k/uL (1.3-7.7); Neutrophils % (A) 62 %; Platelet Count 264 k/uL (150-450); RBC 4.62 m/uL (3.80-5.40); WBC 6.2 k/uL (3.8-10.6)
--- NOTE | 2020-06-07 14:08 | XR ---
EXAMINATION TYPE: XR chest 2V DATE OF EXAM: 06/07/2020 COMPARISON: 04/27/2016 HISTORY: Chest pain TECHNIQUE: FINDINGS: Heart is normal. Lungs are clear of consolidation. There are no hilar masses. Costophrenic angles are clear. The bony thorax is intact. IMPRESSION: No active cardiopulmonary disease. No change.
[2020-06-07 14:12] LABS: INR 0.9 (<1.2); Partial Thromboplastin Time 23.7 sec (22.0-30.0); Prothrombin Time 9.5 sec (9.0-12.0)
[2020-06-07 14:18] LABS: ALT 28 U/L (4-34); AST 34 U/L (14-36); African American GFR (CKD) >90 (>60 ml/min/1.73 sqM); Albumin 3.9 g/dL (3.5-5.0); Alkaline Phosphatase 95 U/L (38-126); Anion Gap 5 mmol/L; Blood Urea Nitrogen 13 mg/dL (7-17); Carbon Dioxide 31 mmol/L (22-30); Chloride 104 mmol/L (98-107); Glucose 90 mg/dL (74-99); Magnesium 2.2 mg/dL (1.6-2.3); Non-African American GFR(CKD) 85 (>60 ml/min/1.73 sqM); Potassium 3.8 mmol/L (3.5-5.1); Sodium 140 mmol/L (137-145); Total Bilirubin 0.4 mg/dL (0.2-1.3); Total Protein 6.7 g/dL (6.3-8.2)
--- NOTE | 2020-06-07 15:33 | ED ---
General Adult HPI - General Chief complaint: Recheck/Abnormal Lab/Rx Stated complaint: High BP Time Seen by Provider: 06/07/20 12:55 Source: patient, family, RN notes reviewed, old records reviewed Mode of arrival: wheelchair Limitations: no limitations - History of Present Illness Initial comments: This is a 71-year-old female presents emergency department stating that her blood pressure was elevated she came to the emergency room. Patient states she had no headache she denies any blurred vision. Patient denies any chest pain palpitations difficulty breathing shortness of breath. Patient states she called her primary medical care doctor he did recommend her to come to the emergency department. Patient states she is asymptomatic but her blood pressure systolic was over 200 and diastolic was over 100 at home. Patient denies any recent fever chills or cough. - Related Data Home Medications Medication Instructions Recorded Confirmed Aspirin EC [Ecotrin Low Dose] 81 mg PO DAILY@1200 10/07/17 06/07/20 Levothyroxine Sodium [Synthroid] 25 mcg PO AC-BRKFST 10/07/17 06/07/20 PARoxetine HCL [Paxil Cr] 25 mg PO HS 10/07/17 06/07/20 Multivit-Min/Iron/Folic/Lutein 1 tab PO DAILY@1600 11/04/17 06/07/20 [Centrum Silver Women Tablet] ALPRAZolam [Xanax] 0.0625 - 0.125 mg PO BID PRN 06/07/20 06/07/20 ARIPiprazole [Abilify] 15 mg PO HS 06/07/20 06/07/20 Acetaminophen Tab [Tylenol Tab] 500 mg PO Q6H PRN 06/07/20 06/07/20 Carbidopa-Levodopa 25-100 mg 1 tab PO TID@0500,1000,1500 06/07/20 06/07/20 [Sinemet 25-100] Divalproex ER [Depakote ER] 250 mg PO HS 06/07/20 06/07/20 Meloxicam [Mobic] 15 mg PO DAILY 06/07/20 06/07/20 Supai-3/Dha/Epa/Fish Oil [Fish Oil 1 cap PO BID@1200,1600 06/07/20 06/07/20 500 mg Softgel] Psyllium Silver Capsule 5 cap PO AC-BID 06/07/20 06/07/20 Sennosides-Docusate Sodium 1 tab PO DAILY 06/07/20 06/07/20 [Senokot-S] amLODIPine [Norvasc] 5 mg PO DAILY 06/07/20 06/07/20 lamoTRIgine [LaMICtal] 300 mg PO HS 06/07/20 06/07/20 Allergies Allergy/AdvReac Type Severity Reaction Status Date / Time acetaminophen [From Percocet] Allergy Unknown Verified 06/07/20 15:20 oxycodone [From Percocet] Allergy Unknown Verified 06/07/20 15:20 Penicillins Allergy Rash/Hives Verified 06/07/20 15:20 propoxyphene [From Darvon] Allergy Unknown Verified 06/07/20 15:20 shellfish derived [Shellfish] Allergy Anaphylaxis Verified 06/07/20 15:20 Review of Systems ROS Statement: Those systems with pertinent positive or pertinent negative responses have been documented in the HPI. ROS Other: All systems not noted in ROS Statement are negative. 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 Patient is nontoxic and well- hydrated and is in mild distress. ENT: Neck is soft and supple. No significant lymphadenopathy is noted. Oropharynx is clear. Moist mucous membranes. Neck has full range of motion without eliciting any pain. EYES: The sclera were anicteric and conjunctiva were pink and moist. Extraocular movements were intact and pupils were equal round and reactive to light. Eyelids were unremarkable. PULMONARY: Unlabored respirations. Good breath sounds bilaterally. No audible rales rhonchi or wheezing was noted. CARDIOVASCULAR: There is a regular rate and rhythm without any murmurs gallops or rubs. ABDOMEN: Soft and nontender with normal bowel sounds. SKIN: Skin is clear with no lesions or rashes and otherwise unremarkable. NEUROLOGIC: Patient is alert and oriented x3. Cranial nerves II through XII are grossly intact. Motor and sensory are also intact. Normal speech, volume and content. Symmetrical smile. MUSCULOSKELETAL: Normal extremities with adequate strength and full range of motion. LYMPHATICS: No significant lymphadenopathy is noted PSYCHIATRIC: Normal psychiatric evaluation. Limitations: no limitations Course Vital Signs 06/07/20 06/07/20 06/07/20 12:52 13:41 15:33 Temperature 98.7 F Pulse Rate 104 H 88 Respiratory 20 18 Rate Blood Pressure 186/93 155/83 156/77 O2 Sat by Pulse 97 98 Oximetry Medical Decision Making - Medical Decision Making ekg shows normal sinus rhythm at a rate of 89bpm. [place] interval is 180. QRS is 86. QT is 368. QTc is 447. Patient received hydralazine 10 mg IV push. Her sugar came down to 155/78 and she remained asymptomatic. - Lab Data Result diagrams: 06/07/20 13:38 06/07/20 13:38 Lab Results 06/07/20 06/07/20 06/07/20 Range/Units 13:38 13:38 13:38 WBC 6.2 (3.8-10.6) k/uL RBC 4.62 (3.80-5.40) m/uL Hgb 14.3 (11.4-16.0) gm/dL Hct 42.7 (34.0-46.0) % MCV 92.4 (80.0-100.0) fL MCH 31.0 (25.0-35.0) pg MCHC 33.5 (31.0-37.0) g/dL RDW 14.0 (11.5-15.5) % Plt Count 264 (150-450) k/uL MPV 7.2 Neutrophils % 62 % Lymphocytes % 23 % Monocytes % 8 % Eosinophils % 4 % Basophils % 1 % Neutrophils # 3.8 (1.3-7.7) k/uL Lymphocytes # 1.4 (1.0-4.8) k/uL Monocytes # 0.5 (0-1.0) k/uL Eosinophils # 0.3 (0-0.7) k/uL Basophils # 0.1 (0-0.2) k/uL PT 9.5 (9.0-12.0) sec INR 0.9 (<1.2) APTT 23.7 (22.0-30.0) sec Sodium 140 (137-145) mmol/L Potassium 3.8 (3.5-5.1) mmol/L Chloride 104 (98-107) mmol/L Carbon Dioxide 31 H (22-30) mmol/L Anion Gap 5 mmol/L BUN 13 (7-17) mg/dL Creatinine 0.66 (0.52-1.04) mg/dL Est GFR (CKD-EPI)AfAm >90 (>60 ml/min/1.73 sqM) Est GFR (CKD-EPI)NonAf 85 (>60 ml/min/1.73 sqM) Glucose 90 (74-99) mg/dL Calcium 9.0 (8.4-10.2) mg/dL Magnesium 2.2 (1.6-2.3) mg/dL Total Bilirubin 0.4 (0.2-1.3) mg/dL AST 34 (14-36) U/L ALT 28 (4-34) U/L Alkaline Phosphatase 95 (38-126) U/L Troponin I (0.000-0.034) ng/mL Total Protein 6.7 (6.3-8.2) g/dL Albumin 3.9 (3.5-5.0) g/dL 06/07/20 Range/Units 13:38 WBC (3.8-10.6) k/uL RBC (3.80-5.40) m/uL Hgb (11.4-16.0) gm/dL Hct (34.0-46.0) % MCV (80.0-100.0) fL MCH (25.0-35.0) pg MCHC (31.0-37.0) g/dL RDW (11.5-15.5) % Plt Count (150-450) k/uL MPV Neutrophils % % Lymphocytes % % Monocytes % % Eosinophils % % Basophils % % Neutrophils # (1.3-7.7) k/uL Lymphocytes # (1.0-4.8) k/uL Monocytes # (0-1.0) k/uL Eosinophils # (0-0.7) k/uL Basophils # (0-0.2) k/uL PT (9.0-12.0) sec INR (<1.2) APTT (22.0-30.0) sec Sodium (137-145) mmol/L Potassium (3.5-5.1) mmol/L Chloride (98-107) mmol/L Carbon Dioxide (22-30) mmol/L Anion Gap mmol/L BUN (7-17) mg/dL Creatinine (0.52-1.04) mg/dL Est GFR (CKD-EPI)AfAm (>60 ml/min/1.73 sqM) Est GFR (CKD-EPI)NonAf (>60 ml/min/1.73 sqM) Glucose (74-99) mg/dL Calcium (8.4-10.2) mg/dL Magnesium (1.6-2.3) mg/dL Total Bilirubin (0.2-1.3) mg/dL AST (14-36) U/L ALT (4-34) U/L Alkaline Phosphatase (38-126) U/L Troponin I <0.012 (0.000-0.034) ng/mL Total Protein (6.3-8.2) g/dL Albumin (3.5-5.0) g/dL Disposition Clinical Impression: Hypertension Disposition: HOME SELF-CARE Condition: Good Instructions (If sedation given, give patient instructions): Hypertension (ED) Is patient prescribed a controlled substance at d/c from ED?: No Referrals: Ricardo Bennett MD [Primary Care Provider] - 1-2 days Time of Disposition: 15:32
[2020-06-07 15:34] VITALS: BP 156/77; PULSE 88; RESP 18
== END 2020-06-07 15:43 | disposition home or self-care (01) ==
LOC: EC 12:48
DX: I10 Essential (primary) hypertension (principal); F41.9 Anxiety disorder, unspecified; F31.9 Bipolar disorder, unspecified; F43.10 Post-traumatic stress disorder, unspecified; E07.9 Disorder of thyroid, unspecified; Z79.899 Other long term (current) drug therapy; Z79.890 Hormone replacement therapy; Z79.82 Long term (current) use of aspirin; Z88.5 Allergy status to narcotic agent; Z88.0 Allergy status to penicillin; Z88.8 Allergy status to other drugs, medicaments and biological substances; Z91.013 Allergy to seafood
CPT/HCPCS: 36415; 80053; 83735; 84484; 85025; 85610; 85730; 71046; 99284; 96374; J0360

== ENCOUNTER 2020-06-13 18:57 | Emergency (ER) | payer MEDICARE, OTHER ==
[2020-06-13 19:09] VITALS: TEMP 98.4
[2020-06-13 20:10] VITALS: BP 152/81; PULSE 94; RESP 16
--- NOTE | 2020-06-13 20:23 | ED ---
Recheck HPI - General Chief Complaint: Recheck/Abnormal Lab/Rx Stated Complaint: Hypertension Time Seen by Provider: 06/13/20 19:15 Source: patient Mode of arrival: wheelchair Limitations: no limitations - History of Present Illness Initial Comments: Patient is a 79-year-old female with history of hypertension, presenting to the emergency Department with complaints of elevated blood pressure today. Patient states she has been monitoring her blood pressure and takes it 4 times daily. She has been on Norvasc 5 mg in the morning but was recently switched to 10 mg in the evenings 3 days ago. Patient was seen in the ER 5 days ago and evaluated for the same thing. She's had normal labs and workup then. Patient states this evening when she took it was in the 190s over 102 so she got concerned and came into the ER. She denies having any symptoms at this time, no headaches, no blurry vision. She denies any other symptoms other then the elevated blood pressure. She doesn't history of anxiety. She has no other complaints at this time. Upon arrival to the ER, her blood pressure is 198/82, it was rechecked 20 minutes later and it was 170/86. The rest of her vitals are completely normal. - Related Data Home Medications Medication Instructions Recorded Confirmed Aspirin EC [Ecotrin Low Dose] 81 mg PO DAILY@1200 10/07/17 06/07/20 Levothyroxine Sodium [Synthroid] 25 mcg PO AC-BRKFST 10/07/17 06/07/20 PARoxetine HCL [Paxil Cr] 25 mg PO HS 10/07/17 06/07/20 Multivit-Min/Iron/Folic/Lutein 1 tab PO DAILY@1600 11/04/17 06/07/20 [Centrum Silver Women Tablet] ALPRAZolam [Xanax] 0.0625 - 0.125 mg PO BID PRN 06/07/20 06/07/20 ARIPiprazole [Abilify] 15 mg PO HS 06/07/20 06/07/20 Acetaminophen Tab [Tylenol Tab] 500 mg PO Q6H PRN 06/07/20 06/07/20 Carbidopa-Levodopa 25-100 mg 1 tab PO TID@0500,1000,1500 06/07/20 06/07/20 [Sinemet 25-100] Divalproex ER [Depakote ER] 250 mg PO HS 06/07/20 06/07/20 Meloxicam [Mobic] 15 mg PO DAILY 06/07/20 06/07/20 Reading-3/Dha/Epa/Fish Oil [Fish Oil 1 cap PO BID@1200,1600 06/07/20 06/07/20 500 mg Softgel] Psyllium Silver Capsule 5 cap PO AC-BID 06/07/20 06/07/20 Sennosides-Docusate Sodium 1 tab PO DAILY 06/07/20 06/07/20 [Senokot-S] lamoTRIgine [LaMICtal] 300 mg PO HS 06/07/20 06/07/20 amLODIPine [Norvasc] 10 mg PO HS 06/13/20 06/13/20 Allergies Allergy/AdvReac Type Severity Reaction Status Date / Time acetaminophen [From Percocet] Allergy Unknown Verified 06/13/20 20:26 oxycodone [From Percocet] Allergy Unknown Verified 06/13/20 20:26 Penicillins Allergy Rash/Hives Verified 06/13/20 20:26 propoxyphene [From Darvon] Allergy Unknown Verified 06/13/20 20:26 shellfish derived [Shellfish] Allergy Anaphylaxis Verified 06/13/20 20:26 Review of Systems ROS Statement: Those systems with pertinent positive or pertinent negative responses have been documented in the HPI. ROS Other: All systems not noted in ROS Statement are negative. 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 Patient is nontoxic and in no acute distress. HEAD: Atraumatic, normocephalic. EYES: Pupils equal round and reactive to light, extraocular movements intact, sclera anicteric, conjunctiva are normal. Eyelids were unremarkable. ENT: TMs normal, nares patent, oropharynx clear without exudates. Moist mucous membranes. NECK: Normal range of motion, supple without lymphadenopathy or JVD. LUNGS: Unlabored respirations. Breath sounds clear to auscultation bilaterally and equal. No wheezes rales or rhonchi. HEART: Regular rate and rhythm without murmurs, rubs or gallops. ABDOMEN: Soft, nontender, normoactive bowel sounds. No guarding, no rebound. No masses appreciated. : Deferred MUSCULOSKELETAL: Normal extremities with adequate strength and normal range of motion, no pitting or edema. No clubbing or cyanosis. NEUROLOGICAL: Patient is alert and oriented x 3. Motor and sensory are also intact. Cranial nerves II through XII grossly intact. Symmetrical smile. Normal speech, normal gait. PSYCH: Normal mood, normal affect. SKIN: Warm, Dry, normal turgor, no rashes or lesions noted. Limitations: no limitations Course Vital Signs 06/13/20 06/13/20 06/13/20 19:03 19:21 20:09 Temperature 98.4 F Pulse Rate 103 H 99 94 Respiratory 18 18 16 Rate Blood Pressure 198/82 178/86 152/81 O2 Sat by Pulse 97 99 97 Oximetry Medical Decision Making - Medical Decision Making Patient is 79-year-old female with history of hypertension presenting with complaints of elevated blood pressure at home just prior to arrival. Her blood pressure is 190/82 upon arrival, was rechecked 20 minutes later and it was 178/86. Patient is asymptomatic, her exam is unremarkable. She was recently switched to 10 mg of Norvasc in the evenings. She has not yet taken her evening dose. Patient's blood pressure was rechecked about a half an hour later it is 152/81. She has remained asymptomatic. I discussed with patient that she can go home and take her normal dose of medicine. She can follow up with her PCP. She is in agreement this plan of care. Return parameters were discussed with the patient and she verbalized understanding. Case discussed with Dr. Reyes. Disposition Clinical Impression: Hypertension Disposition: HOME SELF-CARE Condition: Stable Instructions (If sedation given, give patient instructions): Hypertension (ED) Additional Instructions: Please return to the Emergency Department if symptoms worsen or any other concerns. Continue with your already prescribed medications. Follow up with PCP. Is patient prescribed a controlled substance at d/c from ED?: No Referrals: Maskoni,Bashar, MD [Primary Care Provider] - 1-2 days
== END 2020-06-13 20:30 | disposition home or self-care (01) ==
LOC: EC 18:57
DX: I10 Essential (primary) hypertension (principal); E07.9 Disorder of thyroid, unspecified; F41.9 Anxiety disorder, unspecified; F31.9 Bipolar disorder, unspecified; F43.10 Post-traumatic stress disorder, unspecified; Z79.82 Long term (current) use of aspirin; Z79.890 Hormone replacement therapy; Z79.899 Other long term (current) drug therapy; Z88.8 Allergy status to other drugs, medicaments and biological substances; Z88.0 Allergy status to penicillin; Z91.013 Allergy to seafood; Z88.5 Allergy status to narcotic agent
CPT/HCPCS: 99283

== ENCOUNTER → 2020-09-19 | Outpatient (CLI) | payer MEDICARE | END | disposition home or self-care (01) | LOC: LABWHC1 13:19 | PROVIDERS: ATTEND Internal Medicine | DX: Z20.822 Contact with and (suspected) exposure to COVID-19 (principal) | CPT/HCPCS: U0003; C9803; U0005 ==

== ENCOUNTER → 2020-11-25 | Outpatient (CLI) | payer MEDICARE ==
--- NOTE | 2020-11-25 15:34 | XR ---
EXAMINATION TYPE: XR knee complete RT DATE OF EXAM: 11/25/2020 CLINICAL HISTORY: pain, no injury TECHNIQUE: Three views of the right knee are obtained. COMPARISON: None. FINDINGS: There is tricompartmental osteophytosis and subchondral sclerosis. There is medial and la teral chondrocalcinosis. Knee joint effusion is present. No acute fracture or dislocation is seen. IMPRESSION: Tricompartmental degenerative changes are seen with medial and lateral chondrocalcinosis and knee nicky nt effusion.
== END | disposition home or self-care (01) ==
LOC: RADXRMAIN 15:04
PROVIDERS: ATTEND Family Medicine
DX: M17.11 Unilateral primary osteoarthritis, right knee (principal); M11.261 Other chondrocalcinosis, right knee

== ENCOUNTER → 2021-04-24 | Outpatient (CLI) | payer MEDICARE ==
[2021-04-25 02:54] LABS: ALT 16 U/L (8-44); AST 25 U/L (13-35); Albumin 4.1 g/dL (3.8-4.9); Albumin/Globulin Ratio 1.58 (1.60-3.17); Alkaline Phosphatase 97 U/L (41-126); Bilirubin, Conjugated <0.20 mg/dL (0.20-0.40); Globulin 2.6 g/dL (1.6-3.3); Total Protein 6.7 g/dL (6.2-8.2)
== END | disposition home or self-care (01) ==
LOC: LABWHC1 08:05
DX: F31.81 Bipolar II disorder (principal)
CPT/HCPCS: 36415; 80076; 80164

== ENCOUNTER → 2021-05-11 | Outpatient (CLI) | payer MEDICARE ==
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
--- NOTE | 2021-05-12 12:05 | MM ---
Reason for exam: screening (asymptomatic). Last mammogram was performed 1 year and 3 months ago. History: Patient is postmenopausal, has history of high-risk lesion on a previous biopsy at age 59, history of other cancer, and had first child at age 32. High risk excisional biopsy of the left breast. Benign excisional biopsy of the right breast. Took hormonal contraceptives for 10 years. Took estrogen for 5 years. Took antineoplastic for 5 years. Physical Findings: A clinical breast exam by your physician is recommended on an annual basis and results should be correlated with mammographic findings. MG 3D Screening Mammo W/Cad Bilateral CC and MLO view(s) were taken. Prior study comparison: January 28, 2020, bilateral MG 3d screening mammo w/cad. December 11, 2018, bilateral MG 3d screening mammo w/cad. The breast tissue is extremely dense which could obscure a lesion on mammography. Finding #1: There is stable architectural distortion in the left breast consistent with known excisional changes. Finding #2: There are typically benign vascular, round calcifications in both breasts. There is no discrete abnormality. ASSESSMENT: Benign, BI-RAD 2 RECOMMENDATION: Routine screening mammogram of both breasts in 1 year.
== END | disposition home or self-care (01) ==
LOC: RADMAMWWP 07:43
PROVIDERS: ATTEND Internal Medicine
DX: Z12.31 Encounter for screening mammogram for malignant neoplasm of breast (principal); Z78.0 Asymptomatic menopausal state; R92.1 Mammographic calcification found on diagnostic imaging of breast; Z85.89 Personal history of malignant neoplasm of other organs and systems; M85.89 Other specified disorders of bone density and structure, multiple sites
CPT/HCPCS: 77063; 77067; 77080

== ENCOUNTER → 2021-06-24 | Outpatient (CLI) | payer MEDICARE ==
[2021-06-24 09:55] VITALS: BMI 29.9
== END ==
LOC: DBWHC3 08:23
PROVIDERS: ATTEND Internal Medicine
DX: R63.5 Abnormal weight gain (principal); F41.9 Anxiety disorder, unspecified; F31.9 Bipolar disorder, unspecified; K21.9 Gastro-esophageal reflux disease without esophagitis; E78.5 Hyperlipidemia, unspecified; I10 Essential (primary) hypertension; E03.9 Hypothyroidism, unspecified; M19.90 Unspecified osteoarthritis, unspecified site; F43.10 Post-traumatic stress disorder, unspecified; R25.1 Tremor, unspecified; Z88.0 Allergy status to penicillin; Z91.013 Allergy to seafood; Z79.890 Hormone replacement therapy; Z79.899 Other long term (current) drug therapy; Z88.5 Allergy status to narcotic agent; Z88.6 Allergy status to analgesic agent
CPT/HCPCS: 97802

== ENCOUNTER → 2021-07-01 | Outpatient (CLI) | payer MEDICARE | END | disposition home or self-care (01) | LOC: LABWHC1 10:35 | PROVIDERS: ATTEND Psychiatry & Neurology Psychiatry | DX: F31.81 Bipolar II disorder (principal) | CPT/HCPCS: 36415; 80164 ==

== ENCOUNTER → 2021-08-26 | Outpatient (CLI) | payer MEDICARE ==
--- NOTE | 2021-08-26 08:38 | US ---
EXAMINATION TYPE: US gallbladder DATE OF EXAM: 08/26/2021 COMPARISON: NONE CLINICAL HISTORY: R10.13 DYSEPSIA. Pt states acid reflux EXAM MEASUREMENTS: Liver Length: 14.3 cm Gallbladder Wall: 0.2 cm CBD: 0.3 cm Right Kidney: 10.3 x 4.2 x 4.4 cm Pancreas: Head wnl, body and tail obscured by overlying bowel gas Liver: Cyst right lobe= 1.9 x 2.0 x 2.2 cm, otherwise appeared wnl Gallbladder: A few possible small "gravel" stones Evidence for sonographic Burk's sign: No CBD: wnl Right Kidney: wnl, lower pole gassed out IMPRESSION: 1. Uncomplicated cholelithiasis. 2. Cyst right hepatic lobe as noted.
== END | disposition home or self-care (01) ==
LOC: RADUSWWP 07:08
PROVIDERS: ATTEND Internal Medicine
DX: K80.20 Calculus of gallbladder without cholecystitis without obstruction (principal); K76.89 Other specified diseases of liver
CPT/HCPCS: 76705

== ENCOUNTER → 2022-04-27 | Outpatient (CLI) | payer MEDICARE ==
--- NOTE | 2022-04-27 09:20 | MM ---
Reason for Exam: Clinical finding. Last screening mammogram was performed 12 month(s) ago. Indicated Problems: Pain of the left side (Global) for 3 Month(s) : LT AXILLA AND LATERAL BREAST PAIN FOR [address] OLIVA. Patient History: Menarche at age 13. First Full-Term at age 32. Late child-bearing (after 30). Hysterectomy at age 40. Postmenopausal. Patient has history of breast feeding. Patient used Estrogen for 5 years. Patient used Hormonal Contraceptives for 10 years. Benign Excisional Biopsy on the right side. High risk Excisional Biopsy on the left side. Risk Values: Zara 5 year model risk: 3.4%. NCI Lifetime model risk: 5.2%. Prior Study Comparison: 08/18/2012 Screening Mammogram, Unknown. 08/20/2013 Screening Mammogram, Unknown. 09/13/2014 Screening Mammogram, Unknown. 10/25/2016 Bilateral Screening Mammogram, [facility]. 10/17/2017 Bilateral Diagnostic Mammogram, [facility]. 12/11/2018 Bilateral Screening Mammogram, [facility]. 01/28/2020 Bilateral Screening Mammogram, [facility]. 05/11/2021 Bilateral Screening Mammogram, [facility]. Tissue Density: The breast tissue is heterogeneously dense. This may lower the sensitivity of mammography. Findings: Analyzed By CAD. No suspicious new mass or worrisome cluster microcalcifications within either breast. Benign-appearing round calcifications within the breast. No significant change from prior exams. Patient reports left axillary pain. No suspicious new mass or worrisome cluster microcalcifications within either breast. Benign-appearing round calcifications within the breast. No significant change from prior exams. Patient reports left axillary and lateral breast tenderness. Overall Assessment: Incomplete: need additional imaging evaluation, BI-RAD 0 Management: Diagnostic Breast Ultrasound of the left breast. A clinical breast exam by your physician is recommended on an annual basis and results should be correlated with mammographic findings. This exam should not preclude additional follow-up of suspicious palpable abnormalities. Results were given to the patient verbally at the time of exam. Electronically signed and approved by: Jerod Carreon D.O.
--- NOTE | 2022-04-27 09:25 | USB ---
Reason for Exam: Clinical finding. Patient History: Menarche at age 13. First Full-Term at age 32. Late child-bearing (after 30). Hysterectomy at age 40. Postmenopausal. Patient has history of breast feeding. Patient used Estrogen for 5 years. Patient used Hormonal Contraceptives for 10 years. Benign Excisional Biopsy on the right side. High risk Excisional Biopsy on the left side. Risk Values: Zara 5 year model risk: 3.4%. NCI Lifetime model risk: 5.2%. Technique: Method: Targeted. Prior Study Comparison: 12/11/2018 Bilateral Screening Mammogram, [facility]. 01/28/2020 Bilateral Screening Mammogram, [facility]. 05/11/2021 Bilateral Screening Mammogram, [facility]. Findings: The lateral section of the breast of the left breast and the axilla of the left breast were scanned. Ultrasound of the left breast from 1-5 o'clock with additional evaluation of the axilla was obtained. No solid or cystic lesions identified. Overall Assessment: Negative, BI-RAD 1 Management: Screening Mammogram of both breasts in 1 year. A clinical breast exam by your physician is recommended on an annual basis and results should be correlated with mammographic findings. This exam should not preclude additional follow-up of suspicious palpable abnormalities. Results were given to the patient verbally at the time of exam. Electronically signed and approved by: Jerod Carreon D.O.
== END | disposition home or self-care (01) ==
LOC: RADMAMWWP 07:50
PROVIDERS: ATTEND Internal Medicine
DX: N63.21 Unspecified lump in the left breast, upper outer quadrant (principal); Z78.0 Asymptomatic menopausal state; Z98.890 Other specified postprocedural states
CPT/HCPCS: 77066; 76642; G0279; 77062

== ENCOUNTER → 2023-01-10 | Outpatient (CLI) | payer MEDICARE ==
--- NOTE | 2023-01-10 14:33 | US ---
EXAMINATION TYPE: US carotid duplex BILAT DATE OF EXAM: 01/10/2023 COMPARISON: CLINICAL INDICATION: Female, 82 years old with history of I65.23 CAROTID STENOSIS; Dizziness. HTN co ntrolled with meds. TECHNIQUE: Carotid duplex ultrasound examination. Indirect Doppler criteria was utilized. FINDINGS: EXAM MEASUREMENTS: RIGHT: Peak Systolic Velocity (PSV) cm/sec ----- Right CCA: 86.7 ----- Right ICA: 101.6 ----- Right ECA: 112.9 ICA/CCA ratio: 1.2 RIGHT: End Diastole cm/sec ----- Right CCA: 15.3 ----- Right ICA: 20.8 ----- Right ECA: 12.8 LEFT: Peak Systolic Velocity (PSV) cm/sec ----- Left CCA: 82.3 ----- Left ICA: 88.6 ----- Left ECA: 82.7 ICA/CCA ratio: 1.1 LEFT: End Diastole cm/sec ----- Left CCA: 13.1 ----- Left ICA: 28.1 ----- Left ECA: 0.0 VERTEBRALS (direction of flow): Right Vertebral: Antegrade Left Vertebral: Antegrade Rhythm: Normal PUBLIC EMPLOYMENT MEDIATOR NOTES: No plaque or significant stenosis. Elevated proximal left proximal CCA velocity. IMPRESSION: Less than 50% stenosis of the bilateral carotid bifurcations. Criteria for Assigning % of Stenosis / Diameter reduction (Estimation based on the indirect measurements of the internal carotid artery velocities (ICA PSV). 1. Normal (no stenosis)=ICA PSV < 125 cm/s: ratio < 2.0: ICA EDV<40 cm/s. 2. Less than 50% stenosis=ICA PSV < 125 cm/s: ratio < 2.0: ICA EDV<40 cm/s. 3. 50 to 69% stenosis=ICA PSV of 125 to 230 cm/s: ration 2.0 ? 4.0: ICA EDV 40-100 cm/s. 4. Greater than 70% stenosis to near occlusion= ICA PSV > 230 cm/s: ratio > 4.0: ICA EDV > 100 cm/s. 5. Near occlusion= ICA PSV velocities may be low or undetectable: variable ratio and ICA EDV. 6. Total occlusion=unable to detect flow.
== END | disposition home or self-care (01) ==
LOC: RADUSWWP 13:41
PROVIDERS: ATTEND Internal Medicine
DX: I65.23 Occlusion and stenosis of bilateral carotid arteries (principal); I10 Essential (primary) hypertension
CPT/HCPCS: 93880

== ENCOUNTER → 2023-04-29 | Outpatient (CLI) | payer MEDICARE ==
--- NOTE | 2023-04-29 15:23 | BD ---
EXAMINATION TYPE: Axial Bone Density DATE OF EXAM: 04/29/2023 CLINICAL HISTORY: 82 years old Female. ICD-10 CODE: M85.851 DISORDER OF BONE Height: 64.5 Weight: 176 FRAX RISK QUESTIONS: Family History (Parent hip fracture): yes, mother History of Fracture in Adulthood: yes, L & T spine, ribs, lt ankle Secondary Osteoporosis: no Rheumatoid Arthritis: no RISK FACTORS HISTORY OF: Spine Fracture: yes When: 2017 Surgery to Spine: yes When: 1995 Family History of Osteoporosis: yes, mother Active: yes Diet low in dairy products/other sources of calcium: no Postmenopausal woman: yes Lost more than 2 inches in height since high school: yes was 70 Frequent falls: no Poor Health: no MEDICATIONS: Thyroid Medications: yes Which medication: Levothyroxine How Lon+ yrs.. Additional Medications: yes hbp meds, depression meds Additional History: yes calcium and vit d EXAM MEASUREMENTS: Bone mineral densitometry was performed using the [employer] System. Bone mineral density as measured about the Lumbar spine is: ----- L1-L4(G/cm2): 1.387 T Score Values are as follows: ----- L1: -0.4 ----- L2: 1.7 ----- L3: 2.1 ----- L4: 3.0 ----- L1-L4: 1.7 Z Score Values are as follows: ----- L1: 1.0 ----- L2: 3.1 ----- L3: 3.4 ----- L4: 4.3 ----- L1-L4: 3.1 Bone mineral density baseline Bone mineral density about the R hip (g/cm2): 0.829 Bone mineral density about the L hip (g/cm2): 0.851 T Score values are as follows: -----R Neck: -1.4 -----L Neck: -1.6 -----R Total: -1.4 -----L Total: -1.2 Z Score values are as follows: -----R Neck: 0.5 -----L Neck: 0.3 -----R Total: 0.3 -----L Total: 0.5 Bone mineral density has: Increased 1.4% since study of: 05/11/2021 FRAX%s: The graph provided illustrates a 32.6% chance for a major osteoporotic fx and a 18.7% chance for the hips probability for fx in 10 years time. IMPRESSION: Osteopenia (T Score between -2.5 and -1). There is slightly increased risk of fracture and the patient may be considered for treatment. Re-Screen 2-5 years. NOTE: T-SCORE=SD OF THE YOUNG ADULT MEAN.
--- NOTE | 2023-05-02 08:44 | MM ---
Reason for Exam: Screening (asymptomatic). Last screening mammogram was performed 12 month(s) ago. Patient History: Menarche at age 13. First Full-Term at age 32. Late child-bearing (after 30). Hysterectomy at age 40. Postmenopausal. Patient has history of breast feeding. Patient used Estrogen for 5 years. Patient used Hormonal Contraceptives for 10 years. Benign Excisional Biopsy on the right side. High risk Excisional Biopsy on the left side. Risk Values: Zara 5 year model risk: 3.3%. NCI Lifetime model risk: 4.8%. Prior Study Comparison: 01/28/2020 Bilateral Screening Mammogram, [facility]. 05/11/2021 Bilateral Screening Mammogram, [facility]. 04/27/2022 Bilateral MG 3D diag mammo w/cad [facility], [facility]. Tissue Density: The breast tissue is heterogeneously dense. This may lower the sensitivity of mammography. Findings: Analyzed By CAD. There is no suspicious group of microcalcifications or new suspicious mass in either breast. Overall Assessment: Benign, BI-RAD 2 Management: Screening Mammogram of both breasts in 1 year. . Patient should continue monthly self-breast exams. A clinical breast exam by your physician is recommended on an annual basis. This exam should not preclude additional follow-up of suspicious palpable abnormalities. Note on Zara scores and lifetime risk: 1. A Zara score greater than 3% is considered moderate risk. If this is the case, consider specialist referral to assess eligibility for a risk reducing agent. 2. If overall lifetime risk for the development of breast cancer is 20% or higher, the patient may qualify for future screening with alternating mammogram and breast MRI. Electronically signed and approved by: Dilan Doe M.D. Radiologis
== END | disposition home or self-care (01) ==
LOC: RADMAMWWP 08:17
PROVIDERS: ATTEND Internal Medicine
DX: Z12.31 Encounter for screening mammogram for malignant neoplasm of breast (principal); M85.89 Other specified disorders of bone density and structure, multiple sites; Z78.0 Asymptomatic menopausal state
CPT/HCPCS: 77063; 77067; 77080

== ENCOUNTER → 2023-05-27 | Outpatient (CLI) | payer MEDICARE ==
--- NOTE | 2023-05-27 17:57 | CA ---
Transthoracic Echo Report Name: Riya Ramires Age: 82 Gender: F : 1940 Exam Date: 05/27/2023 13:10 Exam Location: [place] [facility] Ht (in): 65 Wt (lb): 173 Ordering Physician: Keli Rodriguez MD Attending/Referring Phys: Aircraft Sheet Metal Mechanic Mandie Valladares RDCS Procedure CPT: Indications: I34.0 NONRHEUMATIC MITRAL (VALVE) INSUFFICIENCY Cardiac Hx: Technical Quality: Fair Contrast 1: Total Dose (mL): Contrast 2: Total Dose (mL): MEASUREMENTS (Male / Female) Normal Values 2D ECHO LV Diastolic Diameter PLAX 4.2 cm 4.2 - 5.9 / 3.9 - 5.3 cm LV Systolic Diameter PLAX 2.3 cm IVS Diastolic Thickness 0.9 cm 0.6 - 1.0 / 0.6 - 0.9 cm LVPW Diastolic Thickness 0.9 cm 0.6 - 1.0 / 0.6 - 0.9 cm LV Relative Wall Thickness 0.4 RV Internal Dim ED PLAX 2.2 cm LVOT Diameter 1.8 cm LA Volume 45.1 cm??? 18 - 58 / 22 - 52 cm??? LA Volume Index 23.5 cm???/m??? 16 - 28 cm???/m??? M-MODE Aortic Root Diameter MM 2.7 cm LA Systolic Diameter MM 4.1 cm LA Ao Ratio MM 1.5 AV Cusp Separation MM 2.0 cm DOPPLER AV Peak Velocity 145.0 cm/s AV Peak Gradient 8.4 mmHg AV Mean Velocity 103.2 cm/s AV Mean Gradient 4.8 mmHg AV Velocity Time Integral 30.2 cm LVOT Peak Velocity 126.7 cm/s LVOT Peak Gradient 6.4 mmHg LVOT Velocity Time Integral 29.0 cm LVOT Stroke Volume 74.5 cm??? LVOT Stroke Volume Index 40.0 ml/m??? LVOT Cardiac Index 2754.8 cm???/min???m??? AV Area Cont Eq vti 2.5 cm??? AV Area Cont Eq pk 2.2 cm??? MV Area PHT 3.6 cm??? Mitral E Point Velocity 76.6 cm/s Mitral A Point Velocity 126.7 cm/s Mitral E to A Ratio 0.6 MV Deceleration Time 213.2 ms MV E' Velocity 5.3 cm/s Mitral E to MV E' Ratio 14.3 TR Peak Velocity 235.9 cm/s TR Peak Gradient 22.3 mmHg Right Ventricular Systolic Press 26.5 mmHg FINDINGS Left Ventricle Normal Left ventricular size, wall thickness, systolic function with no obvious regional wall motion abnormalities. Normal Left ventricular diastolic filling pattern. Left ventricular ejection fraction is estimated at 55-60 %. No obvious regional wall motion abnormalities. Right Ventricle Normal right ventricular size and function. Right ventricular systolic pressure within normal limits. Right Atrium Normal right atrial size. Left Atrium Normal left atrial size. Mitral Valve Structurally normal mitral valve. Mild mitral annular calcification. Mild mitral regurgitation. Aortic Valve Trileaflet aortic valve. No aortic valve stenosis or regurgitation. Tricuspid Valve Structurally normal tricuspid valve. Mild tricuspid regurgitation. Pulmonic Valve Trace pulmonic regurgitation. Pericardium No pericardial effusion. Aorta Normal size aortic root and proximal ascending aorta CONCLUSIONS Left ventricular ejection fraction is estimated at 55-60 %. No obvious regional wall motion abnormalities. No significant valvular dysfunction No pericardial effusion Previewed by: Dr Ralu Acuna (Electronically Signed) Final Date: 27 May 2023 17:56
== END | disposition home or self-care (01) ==
LOC: RADECHMAIN 12:51
PROVIDERS: ATTEND Internal Medicine
DX: I34.0 Nonrheumatic mitral (valve) insufficiency (principal)
CPT/HCPCS: 93306

== ENCOUNTER → 2024-01-09 | Outpatient (CLI) | payer MEDICARE ==
--- NOTE | 2024-01-10 07:24 | XR ---
EXAMINATION TYPE: XR chest 2V DATE OF EXAM: 01/09/2024 COMPARISON: 06/07/2020 HISTORY: Shortness of breath TECHNIQUE: Frontal and lateral views of the chest are obtained. FINDINGS: Scattered senescent parenchymal changes noted. Hyperinflation compatible with COPD. No evidence for infiltrate. No evidence for atelectasis. Heart size is stable. Mediastinal structures are stable and grossly unremarkable. No evidence for hilar prominence. Degenerative changes dorsal spine. IMPRESSION: 1. No evidence for acute pulmonary disease.
== END | disposition home or self-care (01) ==
LOC: RADXRMAIN 14:48
PROVIDERS: ATTEND Registered Nurse
DX: J45.30 Mild persistent asthma, uncomplicated (principal)
CPT/HCPCS: 71046

== ENCOUNTER → 2024-04-12 | Outpatient (CLI) | payer MEDICARE ==
--- NOTE | 2024-04-12 12:05 | XR ---
EXAMINATION TYPE: XR ribs bilat w pa chest xray DATE OF EXAM: 04/12/2024 11:37 AM COMPARISON: 01/09/2024 CLINICAL INDICATION: Female, 83 years old with history of PAIN, , TECHNIQUE: 9 views FINDINGS: Heart normal size. Mild interstitial prominence is unchanged. Hazy lower lung densities related to ov erlying soft tissue. No consolidation or pleural effusion. Appearance of old healed right anterolateral fifth, sixth, seventh, and eighth ribs. On the left, laterally, subtle cortical irregularity involving the third, fourth, fifth, sixth ribs a lso favor chronic. No displaced rib fracture is seen on either side. IMPRESSION: 1. Chest: No acute cardiopulmonary process. 2. Right RIBS: Suspect old healed right anterolateral fifth, sixth, seventh, and eighth rib fracture deformities. Clinically correlate. No displaced right rib fracture seen. 3. Left RIBS: Suspect old healed fractures left lateral third through sixth ribs. Again, clinically c orrelate. Otherwise, no displaced left rib fracture seen. [facility], , 04/12/2024 12:02 PM
== END | disposition home or self-care (01) ==
LOC: RADXRMAIN 11:01
PROVIDERS: ATTEND Internal Medicine
DX: S20.219A Contusion of unspecified front wall of thorax, initial encounter (principal)
CPT/HCPCS: 71111

== ENCOUNTER → 2024-08-14 | Outpatient (CLI) | payer MEDICARE ==
--- NOTE | 2024-08-14 17:50 | MM ---
Reason for Exam: Screening (asymptomatic). Last mammogram was performed 1 year(s) and 4 month(s) ago. Patient History: Menarche at age 13. First Full-Term at age 32. Late child-bearing (after 31). Hysterectomy at age 40. Postmenopausal. Patient has history of breast feeding. Patient used Estrogen for 5 years. Patient used Hormonal Contraceptives for 10 years. Benign Excisional Biopsy on the right side. High risk Excisional Biopsy on the left side. Risk Values: Zara 5 year model risk: 3.2%. NCI Lifetime model risk: 4.3%. Prior Study Comparison: 05/11/2021 Bilateral Screening Mammogram, [facility]. 04/27/2022 Bilateral MG 3D diag mammo w/cad KASIE, [facility]. 04/29/2023 Bilateral MG 3D screening mammo w/cad, [facility]. Tissue Density: The breasts are heterogeneously dense, which may obscure small masses. Findings: Analyzed By CAD. Redemonstrated vascular calcifications on the right. There is no suspicious group of microcalcifications or new suspicious mass in either breast. Overall Assessment: Benign, BI-RAD 2 Management: Screening Mammogram of both breasts in 1 year. See note below in regards to the patient's increased 5 year Zara score. Patient should continue monthly self-breast exams. A clinical breast exam by your physician is recommended on an annual basis. This exam should not preclude additional follow-up of suspicious palpable abnormalities. Note on Zara scores and lifetime risk: 1. A Zara score greater than 3% is considered moderate risk. If this is the case, consider specialist referral to assess eligibility for a risk reducing agent. 2. If overall lifetime risk for the development of breast cancer is 20% or higher, the patient may qualify for future screening with alternating mammogram and breast MRI. [facility], , 08/14/2024 5:47 PM. Electronically signed and approved by: Kelly Matos M.D. Radiologist
== END | disposition home or self-care (01) ==
LOC: RADMAMWWP 09:26
PROVIDERS: ATTEND Internal Medicine
DX: Z12.31 Encounter for screening mammogram for malignant neoplasm of breast (principal); R92.333 Mammographic heterogeneous density, bilateral breasts; Z78.0 Asymptomatic menopausal state; Z80.3 Family history of malignant neoplasm of breast
CPT/HCPCS: 77063; 77067